=== PATIENT | male | born 1965 | race Caucasian/White ===

== ENCOUNTER 2017-12-10 07:29 | Emergency (ER) | payer OTHER, SELFPAY ==
[2017-12-10] MEDS: DIPHTH,PERTUSS(ACELL),TET TOX 0.5 ML DISP.SYRIN. VAX IM ×2 (08:21)
== END 2017-12-10 11:02 | disposition home or self-care (01) ==
LOC: ER 07:29
DX: S22.039A Unspecified fracture of third thoracic vertebra, initial encounter for closed fracture (principal); S22.049A Unspecified fracture of fourth thoracic vertebra, initial encounter for closed fracture; S00.03XA Contusion of scalp, initial encounter; W11.XXXA Fall on and from ladder, initial encounter; Y93.E5 Activity, floor mopping and cleaning; Y92.511 Restaurant or cafe as the place of occurrence of the external cause; Y99.8 Other external cause status
CPT/HCPCS: 70450; 71045; 72125; 72128; 90471; 90715; 99284-25